=== PATIENT | male | born 1960 | race African-American/Black ===

== ENCOUNTER 2019-06-05 06:16 | Emergency (ER) | payer SELFPAY ==
[2019-06-05] MEDS ORDERED: Fluorescein Opthalmic Strip ONE (06:37)
[2019-06-05] MEDS ORDERED: Gentamicin Ophth Soln 0.3% 5 ml Bottle ONE (06:48)
[2019-06-05] MEDS ORDERED: Tobramycin Sulfate 0.3% Ophth Susp 5 ml Bottle ONE ×2 (06:50→06:51)
[2019-06-05] MEDS ORDERED: Adacel (T-DAP) 0.5 ML SYRINGE ONE (07:02)
== END 2019-06-05 07:17 | disposition home or self-care (01) ==
LOC: BURERS 06:16
DX: T15.01XA Foreign body in cornea, right eye, initial encounter (principal); E11.9 Type 2 diabetes mellitus without complications; I10 Essential (primary) hypertension; F17.210 Nicotine dependence, cigarettes, uncomplicated
CPT/HCPCS: 65205; 90715